=== PATIENT | male | born 1960 | race Caucasian/White ===

== ENCOUNTER 2020-09-23 11:38 | Emergency (ER) | payer MEDICAID ==
[~2020-09-23] VITALS: Ht 180.3 cm; Wt 100.5 kg
[2020-09-23 12:52] VITALS: BP 167/107
[2020-09-23] MEDS ORDERED: HYDR-3965 PO (13:04)
[2020-09-23] MEDS ORDERED: PENI500T2 PO (13:04)
--- NOTE | 2020-09-23 13:10 | NUR ---
Seen, assessed and discharged by provider.
== END 2020-09-23 13:11 | disposition home or self-care (01) ==
LOC: ER 11:39
DX: K04.7 Periapical abscess without sinus (principal); K08.89 Other specified disorders of teeth and supporting structures; Z79.2 Long term (current) use of antibiotics
CPT/HCPCS: 99283